=== PATIENT | female | born 1955 | race Caucasian/White ===

== ENCOUNTER → 2023-10-31 11:46 | Outpatient (REF) | payer OTHER, SELFPAY | LOC: RAD 11:46 | PROVIDERS: ATTENDING PHYSICIAN Surgery; FAMILY PHYSICIAN Family Medicine; REFERRING PHYSICIAN Surgery | DX: K43.4 Parastomal hernia with gangrene (principal) | CPT/HCPCS: 74177; Q9967 ==

== ENCOUNTER 2023-12-20 08:18 | Inpatient (IN) | payer OTHER, SELFPAY ==
[2023-12-01 09:04] VITALS: BMI 28.5
[2023-12-01 10:31] LABS: Hemoglobin 12.4 g/dL (12.0-16.0); Mean Corp Hgb Conc. 33.5 g/dL (33.0-37.0); Mean Corpuscular Hgb 29.9 pg (27.0-31.0); Mean Corpuscular Volume 89.2 fL (81.0-99.0); Mean Platelet Volume 9.9 fL (7.4-10.4); Platelet Count 352 10^3/uL (130-400); Red Blood Cell Count 4.15 10^6/uL (4.20-5.40); Red Cell Dist. Width 13.5 % (11.5-14.5); White Blood Cell Count 5.6 10^3/uL (4.8-10.8)
[2023-12-01 10:59] LABS: ALT (SGPT) 18 U/L (0-35); AST (SGOT) 29 U/L (14-36); Albumin 4.2 g/dl (3.5-5.0); Alkaline Phosphatase 153 U/L (38-126); Blood Urea Nitrogen 9 mg/dl (7-17); Calcium 10.1 mg/dl (8.4-10.2); Carbon Dioxide 27 mmol/L (22-30); Chloride 104 mmol/L (98-107); Estimated Creatinine Clearance 78 ml/min; Glucose 124 mg/dl (70-99); Sodium 142 mmol/L (135-145); Total Bilirubin 0.4 mg/dl (0.2-1.3); Total Protein 6.8 g/dl (6.3-8.2); eGFR > 60.00
[2023-12-20] VITALS (14 sets, daily range): BP systolic 40–132; BP diastolic 51–67; BMI 28.5
[2023-12-20] MEDS: TYLENOL 1000 MG PO (08:58)
[2023-12-20] MEDS: NORMOSOL-R/PLASMALYTE-A 1000 IV ×2 (08:59→22:04)
--- NOTE | 2023-12-20 16:37 | W.IMMPOSTOP ---
Addendum entered and electronically signed by Manuel Daily MD 12/22/23 15:07:
Dic# [id number]
Original Note:
Surgical Immed Post Op Note
-
Primary Surgeon: Killian
Assisting Surgeon: Jelly
Pre-op Diagnosis: Parastomal hernia
Post-op Diagnosis: Parastomal hernia
Procedure Performed: Robotic parastomal hernia repair with mesh, unilateral myofascial release, lysis of adhesions
Anesthesia Type: General
Specimen / Cultures: None
Estimated Blood Loss: 23 cc
Complications: None
Operative Findings:
1. Omental and fatty adhesions, lysis performed for 30 min
2. Fascial defect 8.5 x 6 cm
3. Unilateral TAR on LEFT
4. Ventralight ST 15 x 20 cm mesh, Sugar-Chávez technique, retrorectus, mesh secured circumferential
5. Primary closure of anterior sheath with #1 PDS Stratafix and posterior sheath with complete coverage of mesh using 2-0 PDS Stratafix
6. 19 Fr Eder drain into parastomal defect
[2023-12-20] MEDS: OFIRMEV 100 IV ×2 (17:02→23:17)
[2023-12-20] MEDS: DILAUDID 0.5 MG IV (17:52)
[2023-12-20] MEDS: DILAUDID 0.25 MG IV (18:11)
--- NOTE | 2023-12-20 19:10 | PTCARENOTE ---
Received pt. from PACU, wounds assessed with off-going PACU nurse at bedside. Pt. vital signs WNL, denies pain at present, even and unlabored breathing on RA. Pt. was oriented to room and unit policies, call light within reach, bed locked and in
lowest position, side rails in place, questions answered.
[2023-12-20] MEDS: ROXICODONE 5 MG PO (21:57)
[2023-12-20] MEDS: REQUIP 4 MG PO (23:17)
[2023-12-20] MEDS: HEPARIN 5000 UNITS SC (23:18)
[2023-12-20] MEDS: TORADOL 10 MG IV (23:41)
[2023-12-21] MEDS: FIORICET 1 TAB PO (00:18)
[2023-12-21 03:27] VITALS: BP 114/53
--- NOTE | 2023-12-21 05:14 | W.PN.UPDATE ---
Update Note
Progress Note Update
At [place] RN notified [employer] patient is having migraine headaches. Has a hx of migraines and takes Fioricet with codeine. Headache unrelieved with IV Toradol and Oxycodone. stable VS, 108/55 HR 71. will give one order of Fioricet
At 0500, patient restless and anxious, has a history of anxiety and takes Alprazolam 0.5mg PO TID prn, no other complaints, stable VS
will order Xanax 0.5mg POx1 now.
[2023-12-21] MEDS: XANAX 0.5 MG PO ×2 (05:17→22:42)
--- NOTE | 2023-12-21 05:40 | PTCARENOTE ---
Pt. called to say she woke up feeling very anxious and on the verge of a panic attack, states she does occasionally wake up panicked at home and usually takes a Xanax 0.5mg PO PRN. Pt. visibly anxious and jittery. [employer] contacted and stat dose of
Xanax given.
[2023-12-21 06:25] LABS: Hematocrit 31.8 % (37.0-47.0); Hemoglobin 10.7 g/dL (12.0-16.0); Mean Corp Hgb Conc. 33.6 g/dL (33.0-37.0); Mean Corpuscular Hgb 29.7 pg (27.0-31.0); Mean Corpuscular Volume 88.3 fL (81.0-99.0); Mean Platelet Volume 9.6 fL (7.4-10.4); Platelet Count 267 10^3/uL (130-400); Red Cell Dist. Width 13.6 % (11.5-14.5)
[2023-12-21 06:51] LABS: Blood Urea Nitrogen 11 mg/dl (7-17); Calcium 8.9 mg/dl (8.4-10.2); Carbon Dioxide 25 mmol/L (22-30); Chloride 102 mmol/L (98-107); Estimated Creatinine Clearance 91 ml/min; Glucose 134 mg/dl (70-99); Potassium 4.3 mmol/L (3.5-5.1); Sodium 138 mmol/L (135-145); eGFR > 60.00
[2023-12-21] MEDS: OFIRMEV IV (06:52)
[2023-12-21 07:15] VITALS: BP 121/62
[2023-12-21] MEDS: HEPARIN 5000 UNITS SC ×3 (08:43→22:43)
[2023-12-21] MEDS: NORMOSOL-R/PLASMALYTE-A 1000 IV ×2 (08:45→20:08)
[2023-12-21] MEDS: NEURONTIN 300 MG PO ×5 (08:46→18:10)
[2023-12-21] MEDS: SYNTHROID PO ×2 (08:46→14:17)
[2023-12-21] MEDS: PROTONIX 40 MG PO (08:46)
--- NOTE | 2023-12-21 08:59 | W.PN.GS2 ---
Today's Communication / Plan
-
-- Clears, monitor for ileus
-- mIVF
-- DC Calvillo
-- Home medications ordered
Assessment / Plan
-
Patient is a 68 yo F POD#1 s/p robotic parastomal hernia repair with mesh, unilateral myofascial release (tomorrow), and lysis of adhesions
AVSS
Labs unremarkable, mild blood loss and dilutional anemia noted, clinically asymptomatic with no dizziness, lightheadedness, and normal heart rate and blood pressures
Recovering well overall. No major postoperative concerns.
-- Clears, monitor for ileus
-- Pain control: Tylenol, Toradol, Oxycodone, IV Dilaudid PRN
-- mIVF
-- DC Calvillo
-- OOB/ambulate
-- Home medications ordered
-- DVT: SQH
Subjective Data
-
Date of Service: December 21, 2023
No complaints. Mild incisional soreness well-controlled. No nausea or vomiting. Flatus noticed in appliance. No fevers. No ambulation.
Objective Data
-
Intake and Output
12/20/23 12/21/23 12/22/23
06:59 06:59 06:59
Output Total 1959
Balance -1959 -1959
Output:
Drain Output (Total) 110 / 110
Left Abdomen Yung-Hobson 110 / 110
Urine, Calvillo 1849
Vital Signs
Temp Pulse Resp BP Pulse Ox
98.1 F 58 17 121/62 97
12/21/23 07:15 12/21/23 07:15 12/21/23 07:15 12/21/23 07:15 12/21/23 07:15
Lab Results
12/21/23 05:59
12/21/23 05:59
Calcium 8.9 mg/dl (8.4-10.2) 12/21/23 05:59
Total Bilirubin 0.4 mg/dl (0.2-1.3) 12/01/23 09:10
AST 29 U/L (14-36) 12/01/23 09:10
ALT 18 U/L (0-35) 12/01/23 09:10
Alkaline Phosphatase 153 U/L (38-126) H 12/01/23 09:10
Total Protein 6.8 g/dl (6.3-8.2) 12/01/23 09:10
Albumin 4.2 g/dl (3.5-5.0) 12/01/23 09:10
Physical Exam
-
Gen: NAD
Abd: soft, mild tenderness, ND, non-peritoneal, incisions c/d/i - no erythema, ecchymosis or drainage, ORLY serosang, ostomy PPV - flatus in appliance
--- NOTE | 2023-12-21 09:30 | WOUNDNOTE ---
[facility] RN note: Patient s/p parastomal hernia repair yesterday. Stoma pink, slightly budded about 1 1/4-1 3/8 inches. Colostomy appliance intact. Patient has her own Coloplast 1 piece pouch and moldable rings. Left some other ostomy appliances in room
([place]ampum wafer # [id number], Romeo seal and [place]ampum pouch # [id number]). Patient is independent with her ostomy care. She has my office number is she needs assistance. Will follow peripherally as needed.
[2023-12-21] MEDS: ROXICODONE 5 MG PO ×2 (09:32→18:35)
[2023-12-21 11:10] VITALS: BP 106/53
[2023-12-21] MEDS: OFIRMEV 100 IV (12:11)
[2023-12-21 15:11] VITALS: BP 107/48
[2023-12-21] MEDS: NORMOSOL-R/PLASMALYTE-A IV (19:25)
--- NOTE | 2023-12-21 21:47 | CM ---
met with patient at bedside.patient lives with in house with 3 octavio,her bed and bath is on the first level,she ambulates I and is I with her adl. she has had a vn after ostomy but no hx of ip rehab.
PCP is dr toni beavers and she uses [facility] [place].
PMH:migrranes,self care of prior ostomy.
patient is pod#1 parastomal hernia repair with mesh,myofascial release tomorrow,has vaishnavi drain,higgins dc,clears,monitor for ileus,multi modal pain control.sq heparin.Plan home with no needs vs vn at dc.(pt is not sure she will need a vn)
[2023-12-21] MEDS: NORVASC 2.5 MG PO (22:41)
[2023-12-21] MEDS: REQUIP 4 MG PO (22:42)
[2023-12-21 23:00] VITALS: BP 117/60
[2023-12-22] MEDS: ROXICODONE 5 MG PO ×3 (03:06→16:24)
[2023-12-22] MEDS: NORMOSOL-R/PLASMALYTE-A 1000 IV (05:43)
[2023-12-22] MEDS: DILAUDID 0.5 MG IV (05:48)
[2023-12-22] MEDS: SYNTHROID 75 MCG PO (06:02)
[2023-12-22 06:24] LABS: Hematocrit 34.5 % (37.0-47.0); Hemoglobin 11.3 g/dL (12.0-16.0); Mean Corp Hgb Conc. 32.8 g/dL (33.0-37.0); Mean Corpuscular Hgb 30.4 pg (27.0-31.0); Mean Corpuscular Volume 92.7 fL (81.0-99.0); Platelet Count 236 10^3/uL (130-400); Red Blood Cell Count 3.72 10^6/uL (4.20-5.40); Red Cell Dist. Width 13.8 % (11.5-14.5); White Blood Cell Count 8.5 10^3/uL (4.8-10.8)
[2023-12-22 06:46] LABS: Blood Urea Nitrogen 7 mg/dl (7-17); Calcium 8.5 mg/dl (8.4-10.2); Carbon Dioxide 26 mmol/L (22-30); Chloride 101 mmol/L (98-107); Estimated Creatinine Clearance 91 ml/min; Glucose 111 mg/dl (70-99); Sodium 136 mmol/L (135-145); eGFR > 60.00
[2023-12-22 07:23] VITALS: BP 130/70
--- NOTE | 2023-12-22 08:26 | W.PN.GS2 ---
Addendum entered and electronically signed by Manuel Daily MD 12/22/23 10:38:
Patient seen and examined.
No major complaints. Reports some abdominal soreness across the abdomen, but well-maintained. Denies any nausea or vomiting. No increased bloating or reflux. Reports flatus in her ostomy, no BMs. Ambulating. Voiding.
Gen: NAD
Abd: soft, minimal tenderness, ND (obese), non-peritoneal, incisions c/d/i - no erythema, ecchymosis or drainage, ORLY serosang, ostomy PPV
Patient is a 68 yo F POD#2 s/p robotic parastomal hernia repair with mesh, unilateral myofascial release (tomorrow), and lysis of adhesions
AFVSS
Labs stable
Recovering well overall. No major postoperative concerns.
-- Advance to LRD diet
-- Pain control: Tylenol, Toradol, Oxycodone, IV Dilaudid PRN
-- D/C IVF
-- OOB/ambulate
-- Home medications ordered
-- C/w ORLY, will likely remain in place upon D/C. CM consult for VNA.
-- DVT ppx: SQ heparin and SCD's
Original Note:
Today's Communication / Plan
-
Advance diet
Assessment / Plan
-
Patient is a 68 yo F POD#2 s/p robotic parastomal hernia repair with mesh, unilateral myofascial release (tomorrow), and lysis of adhesions
AFVSS
Labs stable
Recovering well overall. No major postoperative concerns.
-- Advance to LRD diet
-- Pain control: Tylenol, Toradol, Oxycodone, IV Dilaudid PRN
-- D/C IVF
-- OOB/ambulate
-- Home medications ordered
-- C/w ORLY, will anastacialey remain in place upon D/C. CM consult for VNA.
-- DVT ppx: SQ heparin and SCD's
Subjective Data
-
Date of Service: December 22, 2023
Patient seen and examined at bedside with Dr. Daily. Denies n/v. Abdominal soreness across the mid abdomen but manageable. Voiding without difficulty
Objective Data
-
Intake and Output
12/21/23 12/22/23 12/23/23
06:59 06:59 06:59
Intake Total 3720 / 3720
Output Total 1959 2575 / 2575
Balance -1959 1145 / 1145
Intake:
Oral fluids 1320 / 1320
IV fluids (Total) 2300 / 2300
IV piggybacks 100 / 100
Output:
Drain Output (Total) 110 / 110 50 / 50
Left Abdomen Yung-Hobson 110 / 110 50 / 50
Urine, Calvillo 1850 / 1850 700 / 700
Urine, Voided 1825 / 1825
Vital Signs
Temp Pulse Resp BP Pulse Ox
98.3 F 62 16 130/70 94
12/22/23 07:23 12/22/23 07:23 12/22/23 07:23 12/22/23 07:23 12/22/23 07:23
Lab Results
12/22/23 04:38
12/22/23 04:38
Calcium 8.5 mg/dl (8.4-10.2) 12/22/23 04:38
Total Bilirubin 0.4 mg/dl (0.2-1.3) 12/01/23 09:10
AST 29 U/L (14-36) 12/01/23 09:10
ALT 18 U/L (0-35) 12/01/23 09:10
Alkaline Phosphatase 153 U/L (38-126) H 12/01/23 09:10
Total Protein 6.8 g/dl (6.3-8.2) 12/01/23 09:10
Albumin 4.2 g/dl (3.5-5.0) 12/01/23 09:10
Physical Exam
-
Gen: NAD
Abd: soft, mild tenderness, ND, non-peritoneal, incisions c/d/i - no erythema, ecchymosis or drainage, ORLY serosang, ostomy PPV - flatus in appliance
[2023-12-22] MEDS: HEPARIN 5000 UNITS SC ×3 (08:34→23:15)
[2023-12-22] MEDS: PROTONIX 40 MG PO (08:34)
[2023-12-22] MEDS: NEURONTIN 300 MG PO ×5 (08:44→18:00)
[2023-12-22] MEDS: TORADOL 10 MG IV (11:28)
--- NOTE | 2023-12-22 12:29 | CM ---
Case management following for discharge planning
Chart reviewed and met with pt
POD#2 s/p robotic parastomal hernia repair with mesh, unilateral myofascial release (tomorrow), and lysis of adhesions
CM consult for VN - drain care
Discussed with pt - unsure of need. Requesting [facility]
Referral sent in [facility] Port
Plan - anticipate home with [facility] when medically ready
[2023-12-22 15:21] VITALS: BP 111/43
[2023-12-22 21:15] VITALS: BP 135/57
[2023-12-22] MEDS: REQUIP 4 MG PO (21:34)
[2023-12-22] MEDS: NORVASC 2.5 MG PO (21:34)
[2023-12-22] MEDS: XANAX 0.5 MG PO (21:37)
[2023-12-23] MEDS: ROXICODONE 5 MG PO ×3 (02:50→13:26)
[2023-12-23] MEDS: SYNTHROID 75 MCG PO (06:06)
[2023-12-23 07:06] VITALS: BP 139/63
[2023-12-23] MEDS: NEURONTIN 300 MG PO ×5 (08:04→18:12)
[2023-12-23] MEDS: HEPARIN 5000 UNITS SC ×3 (08:04→23:06)
[2023-12-23] MEDS: PROTONIX 40 MG PO (08:04)
--- NOTE | 2023-12-23 10:20 | W.PN.GS2 ---
Addendum entered and electronically signed by Manuel Daily MD 12/23/23 11:57:
Patient seen and examined. Agree with assessment plan as documented below.
No concerns or complaints. Denies nausea or vomiting. Reports flatus, no stool via ostomy. Voiding. Ambulating. Afebrile.
Gen: NAD
Abd: soft, NT/ND, non-peritoneal, incisions c/d/i - no erythema, ecchymosis or drainage, ostomy PPV - slight stool and flatus
Patient is a 68 yo F POD#3 s/p robotic parastomal hernia repair with mesh, unilateral myofascial release (tomorrow), and lysis of adhesions
AFVSS
Labs stable
Recovering well overall. No major postoperative concerns.
+flatus from stoma, not yet productive of stool
-- Continue LRD diet
-- Pain control: Tylenol, Toradol, Oxycodone, IV Dilaudid PRN
-- OOB/ambulate
-- Home medications continued
-- C/W ORLY, will likely remain in place upon D/C
-- DVT ppx: SQ heparin and SCD's
Tentative d/c later today vs tomorrow pending bowel recovery
Original Note:
Today's Communication / Plan
-
Follow for bowel recovery on LRD
Assessment / Plan
-
Patient is a 68 yo F POD#3 s/p robotic parastomal hernia repair with mesh, unilateral myofascial release (tomorrow), and lysis of adhesions
AFVSS
Labs stable
Recovering well overall. No major postoperative concerns.
+flatus from stoma, not yet productive of stool
-- Continue LRD diet
-- Pain control: Tylenol, Toradol, Oxycodone, IV Dilaudid PRN
-- OOB/ambulate
-- Home medications continued
-- C/w ORLY, will likely remain in place upon D/C
-- DVT ppx: SQ heparin and SCD's
Tentative d/c later today vs tomorrow pending bowel recovery
Subjective Data
-
Date of Service: December 23, 2023
Patient seen and examined at bedside with Dr. Daily. Denies n/v. Tolerating diet thus far. Discomfort across abdomen is improving, managed well with current meds
Objective Data
-
Intake and Output
12/22/23 12/23/23 12/24/23
06:59 06:59 06:59
Intake Total 3720 / 3720 1380 / 1380
Output Total 2575 / 2575
Balance 1145 / 1145 1342 / 1342
Intake:
Oral fluids 1320 / 1320 1380 / 1380
IV fluids (Total) 2300 / 2300
IV piggybacks 100 / 100
Output:
Drain Output (Total) 50 / 50
Left Abdomen Yung-Hobson 50 / 50
Urine, Calvillo 700 / 700
Urine, Voided 1825 / 1825
Other:
Number of approximated MODERATE 1
amounts of urine
Vital Signs
Temp Pulse Resp BP Pulse Ox
98.2 F 62 14 139/63 92
12/23/23 07:06 12/23/23 07:06 12/23/23 07:06 12/23/23 07:06 12/23/23 08:00
Lab Results
12/22/23 04:38
12/22/23 04:38
Calcium 8.5 mg/dl (8.4-10.2) 12/22/23 04:38
Total Bilirubin 0.4 mg/dl (0.2-1.3) 12/01/23 09:10
AST 29 U/L (14-36) 12/01/23 09:10
ALT 18 U/L (0-35) 12/01/23 09:10
Alkaline Phosphatase 153 U/L (38-126) H 12/01/23 09:10
Total Protein 6.8 g/dl (6.3-8.2) 12/01/23 09:10
Albumin 4.2 g/dl (3.5-5.0) 12/01/23 09:10
Physical Exam
-
Gen: NAD
Abd: soft, mild tenderness, ND, non-peritoneal, incisions c/d/i - no erythema, ecchymosis or drainage, ORLY serosang, ostomy PPV - flatus in appliance
[2023-12-23] MEDS: MILK OF MAGNESIA 30 ML PO (10:28)
[2023-12-23] MEDS: MIRALAX PO (10:28)
[2023-12-23] MEDS: MIRALAX 17 GRAMS PO (11:44)
[2023-12-23 15:40] VITALS: BP 116/55
[2023-12-23] MEDS: REQUIP 4 MG PO (21:30)
[2023-12-23] MEDS: NORVASC 2.5 MG PO (21:30)
[2023-12-23 23:45] VITALS: BP 116/60
[2023-12-24] MEDS: XANAX 0.5 MG PO (01:00)
[2023-12-24] MEDS: MILK OF MAGNESIA 30 ML PO (05:17)
[2023-12-24] MEDS: TORADOL 10 MG IV (05:17)
[2023-12-24] MEDS: ROXICODONE 5 MG PO (05:17)
[2023-12-24] MEDS: SYNTHROID 75 MCG PO (05:19)
[2023-12-24] MEDS: PROTONIX 40 MG PO (07:37)
[2023-12-24] MEDS: MIRALAX 17 GRAMS PO (07:38)
[2023-12-24] MEDS: HEPARIN 5000 UNITS SC (07:38)
[2023-12-24 07:45] VITALS: BP 117/72
[2023-12-24] MEDS: NEURONTIN 300 MG PO ×2 (08:05→10:43)
--- NOTE | 2023-12-24 08:54 | W.PN.GS2 ---
Addendum entered and electronically signed by Manuel Daily MD 12/24/23 09:13:
Patient seen and examined. Agree with assessment plan as documented below.
No complaints. Pain well-controlled. No nausea or vomiting. Tolerating low residue diet. Flatus, no significant BM via ostomy.
Gen: NAD
Abd: soft, NT/ND, non-peritoneal, incisions c/d/i - no erythema, ecchymosis or drainage, ORLY serosang
Patient is a 68 yo F POD#4 s/p robotic parastomal hernia repair with mesh, unilateral myofascial release (tomorrow), and lysis of adhesions
AFVSS
Recovering well overall. No major postoperative concerns.
+flatus from stoma, not yet productive of stool
-- Continue LRD diet
-- Pain control: Tylenol, Toradol, Oxycodone, IV Dilaudid PRN
-- OOB/ambulate
-- Home medications continued
-- C/w ORLY, will likely remain in place upon D/C
-- C/W bowel regimen of Miralax, MOM given yesterday and today
-- DVT ppx: SQ heparin and SCD's
Tentative d/c later today vs tomorrow pending bowel recovery
Original Note:
Today's Communication / Plan
-
dispo planning
Assessment / Plan
-
Patient is a 68 yo F POD#4 s/p robotic parastomal hernia repair with mesh, unilateral myofascial release (tomorrow), and lysis of adhesions
AFVSS
Recovering well overall. No major postoperative concerns.
+flatus from stoma, not yet productive of stool
-- Continue LRD diet
-- Pain control: Tylenol, Toradol, Oxycodone, IV Dilaudid PRN
-- OOB/ambulate
-- Home medications continued
-- C/w ORLY, will likely remain in place upon D/C
-- C/W bowel regimen of miralax, MOM given yesterday and today
-- DVT ppx: SQ heparin and SCD's
Tentative d/c later today vs tomorrow pending bowel recovery
Subjective Data
-
Date of Service: December 24, 2023
Patient seen and examined at bedside with Dr. Daily. Denies n/v. Tolerating diet. Ambulating well. Pain well managed.
Objective Data
-
Intake and Output
12/23/23 12/24/23 12/25/23
06:59 06:59 06:59
Intake Total 1380 / 1380 1919
Output Total
Balance 1342 / 1342 1899 / 1899
Intake:
Oral fluids 1380 / 1380 1919
Output:
Drain Output (Total)
Left Abdomen Yung-Hobson
Other:
Number of approximated MODERATE 1 6
amounts of urine
How many times incontinent 2
MODERATE amount urine
Vital Signs
Temp Pulse Resp BP Pulse Ox
97.8 F 69 16 117/72 94
12/24/23 07:45 12/24/23 07:45 12/24/23 07:45 12/24/23 07:45 12/24/23 07:45
Lab Results
12/22/23 04:38
12/22/23 04:38
Calcium 8.5 mg/dl (8.4-10.2) 12/22/23 04:38
Total Bilirubin 0.4 mg/dl (0.2-1.3) 12/01/23 09:10
AST 29 U/L (14-36) 12/01/23 09:10
ALT 18 U/L (0-35) 12/01/23 09:10
Alkaline Phosphatase 153 U/L (38-126) H 12/01/23 09:10
Total Protein 6.8 g/dl (6.3-8.2) 12/01/23 09:10
Albumin 4.2 g/dl (3.5-5.0) 12/01/23 09:10
Physical Exam
-
Gen: NAD
Abd: soft, NT, ND, non-peritoneal, incisions c/d/i - no erythema, ecchymosis or drainage, ORLY serosang, ostomy PPV - flatus in appliance
--- NOTE | 2023-12-24 10:38 | CM ---
Pt for discharge today
[facility] to follow at home for ORLY drain
Has ride home with daughter
Discussed IMM
Plan - home with [facility]
f - [phone]
--- NOTE | 2023-12-24 10:51 | W.DCSUMMARY ---
Discharge Summary
Discharge Data
Date of Admission: 12/20/23
Date of Discharge: 12/24/23
-
Pending Results: No
Hospital Course
Ms Hernandez is a 68 yo female who presented for operative management of a parastomal hernia with robotic parastomal hernia repair with mesh, unilateral myofascial release and lysis of adhesions. A ORLY drain was placed intraoperatively in the
subcutaneous space and left in place upon discharge for removal in the outpatient setting once outputs minimal. She did well in the immediate post operative period and diet was able to be advanced and well tolerated. She had good bowel recovery with
flatus/stools noted via stoma prior to discharge. Pain was well controlled. She was discharged to home with family with arrangements made for VNA upon discharge.
Discharge Plan
-
Patient Disposition: Home (Routine Discharge)
Discharge Diagnosis/Procedures: Parastomal hernia repair
Condition: Good
Diet: Low Fiber
Activity: No strenuous activity
Additional Activity: Do not lift over 15 lbs for the next 4-5 weeks
Driving Restrictions: Wait until comfortable twisting/off narcotics
Bathing Restrictions: OK to Shower
Other Services: VN
Wound Care: Ok to remove dressing over drain when showering. Replace with clean dry gauze daily and as needed.
Call your surgeon's office when the drainage is less than 25ml over 24 hours so that a time can be set up for the drain to be removed.
Activity Restrictions/Additional Instructions:
Routine ostomy care.
Call ostomy nurse with pouching questions/concerns [phone], or [phone].
Instructions: Yung-Hobson Drain, How to Keep Track of Your Drainage
Referrals:
Manuel Daily MD [Active] - in less than 1 week
Jai Deras DO [Family Provider] -
Prescriptions:
New
oxycodone 5 mg tablet
5 mg PO Q4HPRN PRN (Reason: breakthrough/severe pain) Qty: 10 0RF
Continued
alprazolam 0.5 mg Tablet
0.5 mg PO TIDPRN PRN (Reason: anxiety)
levothyroxine 75 MCG tablet
75 mcg PO DAILY AT 0700
ondansetron HCl 4 mg tablet
4 mg PO TID PRN (Reason: nausea and vomiting) 3 Days Qty: 14 0RF
acetaminophen 500 mg Tablet
500 - 1,000 mg PO Q6H PRN (Reason: pain)
ropinirole 4 mg Tablet
4 mg PO HS
gabapentin 300 mg Tablet Extended Release 24 Hr
300 mg PO DIRECTED
Rx Instructions:
at 0900,1100,1400,1600,1800
amlodipine 2.5 mg Tablet
2.5 mg PO HS
omeprazole 40 mg Capsule,Delayed Release(Dr/Ec)
40 mg PO DAILY
naproxen sodium [Aleve] 220 mg Tablet
440 mg PO PRN PRN (Reason: pain)
rnozwbbxuv-krcygzwqeh-sjb-cod [Fioricet with Codeine] 16-859-85-30 mg Capsule
1 cap PO Q4H PRN (Reason: migraine)
Patient Comments:
Pt. states she hasn't had a migraine in >1 year
Discontinued
Sutab 1.479-0.188- 0.225 gram Tablet
0 tab PO PER PKG DIR
Rx Instructions:
PRE-OP
oxycodone-acetaminophen [Percocet] 5-325 mg Tablet
5 - 325 tab PO ONCE
Patient Comments:
patient states she took one of her husbands pain mediction 'I know I shouldn't take it'
Discharge Orders:
Discharge Patient (As Directed); Ordered 12/24/23
Ordered By: Aileen Ashley
Discharge Date and Time
Print Language: ALBANIAN
[2023-12-24 10:53] VITALS: BP 136/66
== END 2023-12-24 13:26 | disposition home health service (06) | DRG 337 ==
LOC: 2 SOUTH 08:18
PROVIDERS: ADMITTING PHYSICIAN Surgery; FAMILY PHYSICIAN Family Medicine
PROC: 8E0W4CZ Robotic Assisted Procedure of Trunk Region, Percutaneous Endoscopic Approach (ICD-10-PCS; 2023-12-20)
PROC: 0KXL0Z6 Transfer Left Abdomen Muscle, Transverse Rectus Abdominis Myocutaneous Flap, Open Approach (ICD-10-PCS; 2023-12-20)
PROC: 0DNN4ZZ Release Sigmoid Colon, Percutaneous Endoscopic Approach (ICD-10-PCS; 2023-12-20)
PROC: 0DN84ZZ Release Small Intestine, Percutaneous Endoscopic Approach (ICD-10-PCS; 2023-12-20)
PROC: 0WUF4JZ Supplement Abdominal Wall with Synthetic Substitute, Percutaneous Endoscopic Approach (ICD-10-PCS; 2023-12-20)
PROC: 0DNU4ZZ Release Omentum, Percutaneous Endoscopic Approach (ICD-10-PCS; 2023-12-20)
DX: K43.5 Parastomal hernia without obstruction or gangrene (principal); E66.9 Obesity, unspecified; E03.9 Hypothyroidism, unspecified; K66.0 Peritoneal adhesions (postprocedural) (postinfection); K21.9 Gastro-esophageal reflux disease without esophagitis; F41.9 Anxiety disorder, unspecified; G43.909 Migraine, unspecified, not intractable, without status migrainosus; Z68.28 Body mass index [BMI] 28.0-28.9, adult; Z93.3 Colostomy status; Z79.01 Long term (current) use of anticoagulants; Z79.890 Hormone replacement therapy; Z79.899 Other long term (current) drug therapy; Z87.19 Personal history of other diseases of the digestive system; Z86.718 Personal history of other venous thrombosis and embolism; Z86.711 Personal history of pulmonary embolism; Z90.49 Acquired absence of other specified parts of digestive tract; Z86.19 Personal history of other infectious and parasitic diseases; Z90.710 Acquired absence of both cervix and uterus; Z88.0 Allergy status to penicillin
CPT/HCPCS: 36415; 80048; 80053; 85027; 86850; 86900; 86901; 93005; C1781

== ENCOUNTER → 2024-01-09 11:47 | Outpatient (REF) | payer OTHER, SELFPAY | LOC: HWRAD 11:47 | PROVIDERS: ATTENDING PHYSICIAN Nurse Practitioner Family | DX: R07.89 Other chest pain (principal) | CPT/HCPCS: 71046 ==

== ENCOUNTER 2024-04-12 06:30 | Day surgery (SDC) | payer OTHER, SELFPAY | END 2024-04-12 11:33 | disposition home or self-care (01) | LOC: GI 06:30 | PROVIDERS: ATTENDING PHYSICIAN Internal Medicine | DX: Z12.11 Encounter for screening for malignant neoplasm of colon (principal); Z86.0101 Personal history of adenomatous and serrated colon polyps; K62.89 Other specified diseases of anus and rectum; Z98.0 Intestinal bypass and anastomosis status; Z93.3 Colostomy status | CPT/HCPCS: G0105 ==

== ENCOUNTER → 2024-06-04 14:23 | Outpatient (REF) | payer OTHER, SELFPAY | LOC: HWRAD 14:23 | PROVIDERS: ATTENDING PHYSICIAN Nurse Practitioner Family | DX: M25.551 Pain in right hip (principal) | CPT/HCPCS: 73502 ==

== ENCOUNTER → 2024-08-01 06:42 | Outpatient (REF) | payer OTHER, SELFPAY | LOC: HWRAD 06:42 | PROVIDERS: ATTENDING PHYSICIAN Nurse Practitioner Family; FAMILY PHYSICIAN Family Medicine; REFERRING PHYSICIAN Internal Medicine | DX: R94.5 Abnormal results of liver function studies (principal) | CPT/HCPCS: 76700 ==

== ENCOUNTER 2024-08-14 06:31 | Day surgery (SDC) | payer OTHER, SELFPAY | END 2024-08-14 10:34 | disposition home or self-care (01) | LOC: GI 06:31 | PROVIDERS: ATTENDING PHYSICIAN Internal Medicine | DX: R10.12 Left upper quadrant pain (principal); R11.2 Nausea with vomiting, unspecified; K44.9 Diaphragmatic hernia without obstruction or gangrene; Q45.3 Other congenital malformations of pancreas and pancreatic duct; K31.89 Other diseases of stomach and duodenum; K29.80 Duodenitis without bleeding; K21.00 Gastro-esophageal reflux disease with esophagitis, without bleeding; I89.0 Lymphedema, not elsewhere classified | CPT/HCPCS: 43239; 88305; 88342 ==

== ENCOUNTER 2025-02-14 14:10 | Emergency (ER) | payer OTHER, SELFPAY ==
[2025-02-14 14:14] VITALS: BP 131/64
[2025-02-14 14:45] LABS: Hematocrit 40.4 % (37.0-47.0); Hemoglobin 13.7 g/dL (12.0-16.0); Mean Corp Hgb Conc. 33.9 g/dL (33.0-37.0); Mean Corpuscular Volume 89.0 fL (81.0-99.0); Nucleated Red Blood Cells % 0 %; Platelet Count 285 10^3/uL (130-400); Red Cell Dist. Width 11.9 % (11.5-14.5)
[2025-02-14 14:57] LABS: ALT (SGPT) 29 U/L (0-35); AST (SGOT) 33 U/L (14-36); Albumin 4.7 g/dl (3.5-5.0); Alkaline Phosphatase 130 U/L (38-126); Blood Urea Nitrogen 12 mg/dl (7-17); Calcium 9.2 mg/dl (8.4-10.2); Carbon Dioxide 24 mmol/L (22-30); Chloride 100 mmol/L (98-107); Glucose 124 mg/dl (70-99); Lipase 78 U/L (23-300); Potassium 3.8 mmol/L (3.5-5.1); Sodium 133 mmol/L (135-145); Total Protein 7.7 g/dl (6.3-8.2); eGFR > 60.00
== END 2025-02-14 15:29 | disposition other institution (70) ==
LOC: EMR 14:10
PROVIDERS: Student in an Organized Health Care Education/Training Program
DX: R19.7 Diarrhea, unspecified (principal); R11.2 Nausea with vomiting, unspecified
CPT/HCPCS: 80053; 83690; 85025

== ENCOUNTER → 2025-03-24 14:36 | Outpatient (REF) | payer OTHER, SELFPAY | LOC: MRI 14:36 | PROVIDERS: ATTENDING PHYSICIAN Internal Medicine; FAMILY PHYSICIAN Family Medicine | DX: I81 Portal vein thrombosis (principal); R79.89 Other specified abnormal findings of blood chemistry; R74.8 Abnormal levels of other serum enzymes; K74.60 Unspecified cirrhosis of liver | CPT/HCPCS: 74183; 76391; A9575 ==